=== PATIENT | female | born 1945 | race Caucasian/White ===

== ENCOUNTER → 2016-06-04 | Day surgery (SDC) | payer OTHER ==
--- NOTE | 2016-06-02 12:44 | History & Physical Pre-Op ---
General Information and HPI History of Present Illness: Ely is a 70-year-old female who sustained a laceration and retained foreign body to her right foot. The patient presented to the ER for evaluation and was told that her retained foreign body was too deep to be excised at bedside. Patient complaints of pain and swelling to the plantar lateral aspect of her right foot. Patient denies nausea vomiting fever chills. Allergies/Medications Allergies: Coded Allergies: Penicillins (Intermediate, RASH 05/31/16) MDX - SULFA (sulfonamide) (SULFA (sulfonamide)) (SYNCOPE 05/31/16) Home Med list Alprazolam (Xanax) 0.5 MG TABLET 1 TAB PO TIDPRN ANXIETY (Reported) Lisinopril 40 MG TABLET 1 TAB PO DAILY HTN (Reported) Nitrofurantoin Macrocrystal (Nitrofurantoin) 50 MG CAPSULE 1 CAP PO QOD CHRONIC UTI (Reported) Omeprazole 20 MG TABLET.DR 1 TAB PO DAILY GERD (Reported) Oxybutynin Chloride (Oxybutynin Chloride ER) 10 MG TAB.ER.24 1 TAB PO DAILY OVERRACTIVE BLADDER (Reported) Past History Medical History Cardiovascular: hypertension Gastrointestinal: GERD Surgical History Pertinent Surgical History: non-contributory Review of Systems Review of Systems: Unremarkable except noted in history of present illness Exam & Diagnostic Data Physical Exam: Lungs clear bilaterally. Heart sounds rate and rhythm regular. Lower extremity physical exam demonstrates intact pedal pulses bilaterally. Pulses dorsalis pedis and posterior tibial arteries are palpable bilaterally. Patient without any sensory motor deficits. Deep tendon reflexes grossly intact. Patient noted to have a stellate puncture site at the plantar lateral right midfoot. There is some serosanguineous drainage noted from the wound bed. There is pain with palpation to the region. X-rays demonstrate a retained radiopaque foreign body. Assessment/Plan Assessment/Plan: Laceration with retained foreign body plantar right foot. A lengthy discussion reviewing both surgical and conservative options was held the patient at bedside and the patient elects to go forward with surgery despite the risks. As Ranked By This Provider Problem List: 1. Laceration of right foot with foreign body Attending MD Review Statement Attending Statement Attending MD Statement: examined this patient
[~2016-06-04] VITALS: Ht 157.5 cm; Wt 115.7 kg
[~2016-06-04] MED LIST: LISINOPRIL40 M1 PO; NITROFURANTOIN50 M1 PO; OMEPRAZOLE20 M3 PO; OXYBUTYNIN CHLO10 M1 PO; XANAX0.5 M1 PO
--- NOTE | 2016-06-04 11:34 | Operative Report ---
Operative/Inv Procedure Report Surgery Date: 06/04/16 Name of Procedure: 1 open incision and drainage deep to the D fashion with exposure of the flexor tendon and tendon sheath multiple sites right foot with excision of retained foreign body 2 closure of right foot laceration with local random advancement flap 3 intraoperative administration of ankle block anesthesia Pre-Operative Diagnosis: 1 open infected wound right foot with retained foreign body 2 traumatic laceration plantar right foot Post-Operative Diagnosis: The same Estimated Blood Loss: less than 50ml Surgeon/Bait Painter: KIEL PRIETO DPM Anesthesia: moderate sedation, block Operative/Procedure Note Note: After obtaining informed consent the patient was brought to the operating room and placed on the operating table in the supine position. The patient was then securely fastened to the operating table utilizing safety belt. After administration of IV sedation, 10 mL of 0.5% Marcaine plain was infiltrated about the patient's right ankle. The right foot and ankle within scrubbed prepped and draped in usual aseptic manner. Under fluoroscopic guidance, the retained foreign body was identified and a freer and skin marker were utilized to locate the appropriate skin incision. Plantarly, a laceration was identified and this was extended proximally and distally by 2 cm. He dissection was then carried into the subtenons tissues where a glass foreign body was identified. It was removed en bloc with adjacent soft tissues. The dissection was then carried down deep to the D fashion with exposure flexor tendon and tendon sheath , proximally and distally. All necrotic nonviable infected tissue sharply evacuated from the wound bed. The foot was then irrigated with 3 L normal sterile saline fissure 50,000 units of bacitracin. Following this, the foot was redraped and the surgeon's top gloves were exchanged for clean gloves. Any bleeding vessels identified were cauterized or ligated as encountered. A plantar lateral flap was then developed with undermining, release of the morning ligaments and mobilization of the adjacent tissue. The flap was then rotated centrally towards the open wound and held with 3-0 Vicryl. The septae stitches reapproximated 4-0 Vicryl and the skin edges reapproximated 3-0 nylon. Incision was then dressed with Xeroform 4 x 4's Kerlix and an Eddie wrap. The patient was noted to tolerate both procedure and anesthesia well and the patient was transported from the operating room to recovery via signs stable best assess intact to both the plantar medial plantar lateral flaps.
== END ==
LOC: STS 02:38
DX: S91.321A Laceration with foreign body, right foot, initial encounter (principal); X58.XXXA Exposure to other specified factors, initial encounter; K21.9 Gastro-esophageal reflux disease without esophagitis; I10 Essential (primary) hypertension
CPT/HCPCS: 88304; J2001; J2250